=== PATIENT | female | born 1990 | race Caucasian/White ===

== ENCOUNTER 2021-04-25 13:15 | Day surgery (SDC) | payer SELFPAY ==
[~2021-04-25 13:15] MED LIST: Bupivacaine 0.25% HCL 30 ML VIAL ONE; EPINEPHrine 1 MG/ML AMP ONE
[2021-04-25] MEDS ORDERED: Lidocaine 1% MPF 2 ML VIAL ONE (13:22)
[2021-04-25] MEDS ORDERED: Midazolam HCl 2 mg/2 ml Vial ONE (13:31)
[2021-04-25] MEDS ORDERED: Propofol 1,000 MG/100 ML VIAL IV ONE (13:32)
[2021-04-25] MEDS ORDERED: Famotidine/PF 20 mg/2ml Vial ONE (13:32)
[2021-04-25] MEDS ORDERED: HYDROmorphone 0.5 MG/0.5 ML SYRINGE ONE (13:32)
[2021-04-25] MEDS ORDERED: Scopolamine 1.5 mg/72 hour Patch ONE (13:32)
[2021-04-25] MEDS ORDERED: Fentanyl 250 MCG/5 ML VIAL ONE (13:39)
[2021-04-25] MEDS ORDERED: PROPOFOL 20 ML ONE (13:44)
[2021-04-25] MEDS ORDERED: ceFAZolin 2 GM/Dextrose 50 ML IVPB ONE (13:46)
[2021-04-25] MEDS ORDERED: Ondansetron PF 4 MG/2 ML Vial ONE (13:48)
[2021-04-25] MEDS ORDERED: Rocuronium Bromide 10 MG/ML (10ML VIAL) ONE (13:48)
[2021-04-25] MEDS ORDERED: Lidocaine 1% PF 5 ML VIAL ONE (13:48)
[2021-04-25] MEDS ORDERED: Ketorolac Tromethamine 30 MG/ML VIAL ONE (13:49)
[2021-04-25] MEDS ORDERED: Glycopyrrolate 0.2 MG/ML 5 ML SYRINGE ONE (13:49)
[2021-04-25] MEDS ORDERED: Dexamethasone 4 mg/ml Vial ONE (13:49)
[2021-04-25] MEDS ORDERED: Lidocaine 2% MPF 10 ML AMP (For Epidural Use) ONE (13:51)
[2021-04-25] MEDS ORDERED: SUGAMMADEX SODIUM 200 MG/2 ML VIAL ONE (13:57)
[2021-04-25 14:00] VITALS: BMI 27.4
[2021-04-25] MEDS ORDERED: Fentanyl 100 MCG/2 ML VIAL ONE (15:43)
== END 2021-04-25 16:43 | disposition home or self-care (01) ==
LOC: CSHSDC/OP 13:15
PROVIDERS: ATTEND Surgery
PROC: 0FT44ZZ Resection of Gallbladder, Percutaneous Endoscopic Approach (ICD-10-PCS; principal; 2021-04-25)
DX: K80.12 Calculus of gallbladder with acute and chronic cholecystitis without obstruction (principal); F17.210 Nicotine dependence, cigarettes, uncomplicated
CPT/HCPCS: 88304; C1713; J0171; J0690; J1100; J1170; J1885; J2250; J2405; J2704; J3010; S0020; S0028